=== PATIENT | female | born 1950 | race Caucasian/White ===

== ENCOUNTER → 2017-05-28 | Day surgery (SDC) | payer OTHER ==
[~2017-05-28] MED LIST: BIOGAIA1 TAB PO; BITREX PO; GABAPENTIN300 MG PO; LISINOPRIL10 MG PO; PERCOCET 5-3251 EACH PO; ZANTAC150 M3 PO; [UNRECOGNIZED DRUG - OTHER] PO
== END | disposition home or self-care (01) ==
LOC: ADM 05-06 12:30 → CIR.AMB 06:53
DX: M75.121 Complete rotator cuff tear or rupture of right shoulder, not specified as traumatic (principal); M19.011 Primary osteoarthritis, right shoulder; M75.51 Bursitis of right shoulder; M75.41 Impingement syndrome of right shoulder

== ENCOUNTER 2018-01-07 11:30 | Inpatient (IN) | payer OTHER ==
[~2018-01-07] VITALS: Ht 152.4 cm; Wt 79.8 kg
[2018-01-07] MEDS ORDERED: SYNTHROID88 MCG PO (14:35)
[2018-01-07] MEDS ORDERED: DIOVAN HCT 1601 EACH PO (14:35)
== END 2018-01-16 18:33 | DRG 470 ==
LOC: SURH 01-14 07:07 → O/R 01-14 07:07 → SURH 01-14 10:30
PROVIDERS: Orthopaedic Surgery
PROC: 0SRD0J9 Replacement of Left Knee Joint with Synthetic Substitute, Cemented, Open Approach (ICD-10-PCS; principal; 2018-01-14 10:30)
DX: M17.12 Unilateral primary osteoarthritis, left knee (principal); G47.33 Obstructive sleep apnea (adult) (pediatric); I10 Essential (primary) hypertension; E03.8 Other specified hypothyroidism